=== PATIENT | male | born 1995 | race Caucasian/White ===

== ENCOUNTER 2019-03-09 21:42 | Emergency (ER) | payer OTHER ==
[2019-03-09 21:58] VITALS: BP 141/92; PULSE 120
[2019-03-09] MEDS ORDERED: Lidocaine/EPINEPHrine/Tetracaine Soln 1 ML TOP ONE (22:35)
--- NOTE | 2019-03-09 22:36 | EDM.PDOC ---
ED HPI GENERAL MEDICAL PROBLEM - General Chief Complaint: Laceration Stated Complaint: CUT UNDER LEFT EYEBROWN Time Seen by Provider: 03/09/19 21:45 Source of Information: Reports: Patient, Other (Friend) History Limitations: Reports: No Limitations - History of Present Illness INITIAL COMMENTS - FREE TEXT/NARRATIVE: Mr. Gipson is a very pleasant 23-year-old man with no chronic medical issues or surgical history, who reports that he took an elbow to his left eyebrow while playing basketball around 21:15 tonight, sustaining a laceration under the left eyebrow. He states that the wound initially bled a lot, but has since stopped. No loss of consciousness, indeed, the patient did not even get knocked down. He is otherwise uninjured. He reports that his last tetanus vaccination was less than 10 years ago. The patient does not have a PCP. He received an influenza vaccine this season. Left Face/Facial Pain Score (Numeric/FACES): 2 - Related Data Allergies Allergy/AdvReac Type Severity Reaction Status Date / Time No Known Allergies Allergy Verified 03/09/19 21:58 Home Meds: Home Meds . [No Known Home Meds] 12/16/14 [History] Past Medical History - Past Health History Medical/Surgical History: Denies Medical/Surgical History Social & Family History - Tobacco Use Smoking Status *Q: Never Smoker - Caffeine Use Caffeine Use: Reports: Energy Drinks, Soda - Alcohol Use Alcohol Use History: Yes Alcohol Use Frequency: Socially (occasionally to excess) - Recreational Drug Use Recreational Drug Use: No - Living Situation & Occupation Living situation: Reports: Single, with Family Occupation: Employed (Materials Planner/Production Planner) ED ROS GENERAL - Review of Systems Review Of Systems: Comprehensive ROS is negative, except as noted in HPI. ED EXAM, SKIN/RASH Exam: See Below Exam Limited By: No Limitations General Appearance: Alert, WD/WN, No Apparent Distress Eye Exam: Bilateral Eye: EOMI, Normal Inspection Ears: Normal External Exam, Hearing Grossly Normal Nose: Normal Inspection Throat/Mouth: Normal Inspection, Normal Lips, Normal Voice, No Airway Compromise Head: Normocephalic, Other (Approximately 1.5 cm laceration running parallel to and inferior to the patient's left eyebrow.) Neck: Normal Inspection, Supple, Non-Tender, Full Range of Motion ED SKIN PROCEDURES - Laceration/Wound Repair Left Face Appearance: Subcutaneous, Linear, Clean Distal NVT: Neuro & Vascular Intact, No Tendon Injury Anesthetic Type: Topical (LET) Skin Prep: Providone-Iodine (Betadine) Exploration/Debridement/Repair: Wound Explored, In a Bloodless Field, Explored to Base, No Foreign Material Found Closed with: Sutures Lac/Wound length In cm: 1.7 Suture Size: 4-0 # of Sutures: 7 Suture Type: Nylon (Prolene), Running Drain Placement: No Sterile Dressing Applied: Nurse Tetanus Status Addressed: Yes Complications: No Course - Vital Signs Last Recorded V/S: Last Vital Signs Temp 36.9 C 03/09/19 21:55 Pulse 120 H 03/09/19 21:55 Resp 16 03/09/19 21:55 BP 141/92 H 03/09/19 21:55 Pulse Ox 97 03/09/19 21:55 - Orders/Labs/Meds Meds: Medications Discontinued Medications Generic Name Dose Route Start Last Admin Trade Name Freq PRN Reason Stop Dose Admin Lidocaine/Tetracaine 1 ml 03/09/19 22:35 03/09/19 22:40 Let Soln TOP 03/09/19 22:36 1 ml ONETIME ONE Administration - Re-Assessments/Exams Free Text/Narrative Re-Assessment/Exam: 03/09/19 22:35 The laceration to the inferior aspect of the patient's left eyebrow will need suturing. I have ordered topical LET. 03/09/19 23:34 Following the application of topical LET, the patient had good blanching around the wound and good local anesthesia. The wound was closed with 7 running sutures using 4-0 Prolene, under a sterile field. The patient tolerated the procedure well. A Band-Aid was applied per his nurse. The sutures should be ready for removal by , 03/17/2019. Departure - Departure Time of Disposition: 23:35 Disposition: Home, Self-Care 01 Condition: Good Clinical Impression: Laceration of left eyebrow - Discharge Information *PRESCRIPTION DRUG MONITORING PROGRAM REVIEWED*: Not Applicable *COPY OF PRESCRIPTION DRUG MONITORING REPORT IN PATIENT JESSICA: Not Applicable Referrals: PCP,None [Primary Care Provider] - Forms: ED Department Discharge Additional Instructions: You were seen in the emergency room after taking an elbow to your left eyebrow while playing basketball, causing a laceration. Your wound was closed with 7 running sutures. Keep the wound clean with ordinary soap and water when you bathe. Apply a Band- Aid to the wound for the next couple of days, to help prevent blood from getting on your pillowcase. Take [id number] Tylenol or ibuprofen as needed for discomfort. The sutures should be ready for removal by , 03/17/2019. The sutures can be removed at the walk-in clinic, by a nurse at your doctor's office, or in the ER. Do not try to remove the sutures yourself. If any other problems, please do not hesitate to return to the ER. Sepsis Event Note - Evaluation Sepsis Screening Result: No Definite Risk - Focused Exam Vital Signs: Vital Signs Temp Pulse Resp BP Pulse Ox 03/09/19 21:55 36.9 C 120 H 16 141/92 H 97 Date Exam was Performed: 03/09/19 Time Exam was Performed: 23:33
== END 2019-03-09 23:51 | disposition home or self-care (01) ==
LOC: JD.ED 21:42
DX: S01.112A Laceration without foreign body of left eyelid and periocular area, initial encounter (principal); W50.0XXA Accidental hit or strike by another person, initial encounter; Y93.67 Activity, basketball
CPT/HCPCS: 12011; 99282; 99282-25